=== PATIENT | female | born 2000 | race American Indian/Alaskan Native ===

== ENCOUNTER 2022-05-08 14:55 | Emergency (ER) | payer MEDICAID, OTHER, SELFPAY ==
[2022-05-08 15:37] VITALS: BP 128/82; PULSE 76; RESP 17; TEMP 36.4; O2SAT 100
--- NOTE | 2022-05-08 15:43 | DI.RAD.S_ITS ---
PROCEDURE: XR FINGER RT MIN 2V INDICATIONS: injury TECHNIQUE: AP hand, 2 views of the 5th finger(s) acquired. COMPARISON: [facility], , FINGER RT, 12/05/2011, 15:35. FINDINGS: Bones: No fractures or dislocations. No suspicious bony lesions. Soft tissues: No suspicious soft tissue calcifications. IMPRESSION: No visualized acute fracture or dislocation. However, if clinical concern and/or pain persist, short interval imaging followup in 7-10 days is recommended, as occult injury cannot be definitively excluded. Dictated by: Sury Malone M.D. on 05/08/2022 at 16:40 Approved by: Sury Malone M.D. on 05/08/2022 at 16:40
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
--- NOTE | 2022-05-08 18:28 | DI.CT.S_ITS ---
PROCEDURE: CT SOFT TISSUE NECK W CON INDICATIONS: Extra luminal air TECHNIQUE: After the administration of intravenous contrast, 3.0 mm axial sections acquired from the sella to the aortic arch. Additional oblique axial 3.0 mm sections acquired through the pharynx. 3 mm thick coronal and sagittal reformats were generated. For radiation dose reduction, the following was used: automated exposure control. COMPARISON: [facility], CT, CT CERVICAL SPINE WO CON, 05/08/2022, 16:21. FINDINGS: Image quality: Excellent. Lymph nodes: No enlarged lymph nodes seen throughout the neck. Vessels: Visualized vasculature appears patent. Neck spaces: The oropharynx, nasopharynx, and pharynx demonstrate no mucosal lesions. The vocal cords, false vocal cords, pyriform sinuses, epiglottis, vallecula, and tongue base all appear normal. Extramucosal spaces appear unremarkable. On image 2/, previously identified paratracheal unencapsulated soft tissue air measuring 1.2 cm is again identified, unchanged. Glands: The parotid and submandibular glands appear normal. Thyroid gland unremarkable. Miscellaneous: Visualized brain and orbits appear normal. Lung apices appear clear. Superficial soft tissues appear normal. Bones: No suspicious bony lesions. Visualized sinuses and mastoids appear unremarkable. 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 on 05/08/2022 at 18:16
[2022-05-08 20:11] VITALS: BP 114/71; PULSE 73; RESP 16; O2SAT 97
[2022-05-08] MEDS: KETOROLAC 30 MG/ML VIAL 15 MG IV (21:02)
== END 2022-05-08 21:20 | disposition home or self-care (01) ==
PROVIDERS: Emergency Provider Emergency Medicine; Family Provider Physician Assistant; PCP Physician Assistant
DX: S20.211A Contusion of right front wall of thorax, initial encounter (principal); S16.1XXA Strain of muscle, fascia and tendon at neck level, initial encounter; S63.616A Unspecified sprain of right little finger, initial encounter; Y04.2XXA Assault by strike against or bumped into by another person, initial encounter
CPT/HCPCS: 70491; 71046; 72125; 73140; 96374; 99285; J1885; Q9967